=== PATIENT | female | born 1975 | race Caucasian/White ===

== ENCOUNTER → 2018-12-13 | Outpatient (CLI) | payer MEDICARE, OTHER ==
--- NOTE | 2018-12-16 11:58 | MM ---
Reason for exam: screening (asymptomatic). Last mammogram was performed 6 years and 7 months ago. History: Family history of premenopausal breast cancer in mother at age 35, breast cancer in maternal aunt, and breast cancer in maternal grandmother. Took hormonal contraceptives for 1 year beginning at age 34. Physical Findings: A clinical breast exam by your physician is recommended on an annual basis and results should be correlated with mammographic findings. MG 3D Screening Mammo W/Cad Bilateral CC and MLO view(s) were taken. Prior study comparison: May 28, 2012, bilateral digital screening mammo w/CAD. October 14, 2010, CAD bilateral diagnostic mammogram. There are scattered fibroglandular densities. There is no discrete abnormality. ASSESSMENT: Negative, BI-RAD 1 RECOMMENDATION: Routine screening mammogram of both breasts in 1 year.
== END ==
LOC: RADMAMWWP 07:33
PROVIDERS: ATTEND Internal Medicine
DX: Z12.31 Encounter for screening mammogram for malignant neoplasm of breast (principal); Z80.3 Family history of malignant neoplasm of breast
CPT/HCPCS: 77063; 77067

== ENCOUNTER 2019-12-03 07:38 | Emergency (ER) | payer MEDICARE, OTHER ==
[2019-12-03] MEDS ORDERED: ALBUTEROL INHALER 60 PUFF/8 GM INHALER (BULK) INHALATION STA (08:11)
--- NOTE | 2019-12-03 08:11 | ED ---
General Adult HPI - General Chief complaint: Shortness of Breath Stated complaint: COLD Time Seen by Provider: 12/03/19 07:40 Source: patient, RN notes reviewed, old records reviewed Mode of arrival: ambulatory Limitations: no limitations - History of Present Illness Initial comments: This is a 44-year-old female with past medical history significant for smoking and history of high blood pressure. Patient states she woke up this morning about 4:00 and was having a hard time breathing. Patient states she felt like she was wheezing but she also states the difficulty breathing is intermittent. Patient states she had 101.3 fever at home and but she took Tylenol at 6:30 this morning. Patient denies any chest pain or palpitations. Patient denies headache. Patient denies numbness weakness. Patient denies any abdominal pain patient's nausea vomiting diarrhea. Patient denies any swelling to the legs or calf tenderness. - Related Data Home Medications Medication Instructions Recorded Confirmed Ibuprofen [Motrin] 800 mg PO TID 01/03/16 01/03/16 Medroxyprogesterone Acetate 10 mg PO Q14D 01/03/16 01/03/16 [Provera] Propranolol HCl [Inderal Xl] 80 mg PO DAILY 01/03/16 01/03/16 Rivaroxaban [Xarelto] 15 mg PO DAILY 01/03/16 01/03/16 Previous Rx's Medication Instructions Recorded Albuterol Inhaler [Ventolin Hfa 1 - 2 puff INHALATION Q6HR PRN #2 12/03/19 Inhaler] puff Allergies Allergy/AdvReac Type Severity Reaction Status Date / Time cephalexin monohydrate Allergy Itching Verified 12/03/19 07:43 [From Keflex] codeine AdvReac Nausea & Verified 12/03/19 07:43 Vomiting Review of Systems ROS Statement: Those systems with pertinent positive or pertinent negative responses have been documented in the HPI. ROS Other: All systems not noted in ROS Statement are negative. Past Medical History Past Medical History: Hypertension History of Any Multi-Drug Resistant Organisms: None Reported Past Surgical History: Cholecystectomy Additional Past Surgical History / Comment(s): bladder sling Past Psychological History: No Psychological Hx Reported Smoking Status: Current every day smoker Past Alcohol Use History: None Reported Past Drug Use History: None Reported General Exam - General Exam Comments Initial Comments: GENERAL: Patient is well-developed and well-nourished. Patient is nontoxic and well- hydrated and is in mild distress. ENT: Neck is soft and supple. No significant lymphadenopathy is noted. Oropharynx is clear. Moist mucous membranes. Neck has full range of motion without eliciting any pain. EYES: The sclera were anicteric and conjunctiva were pink and moist. Extraocular movements were intact and pupils were equal round and reactive to light. Eyelids were unremarkable. PULMONARY: Unlabored respirations. Good breath sounds bilaterally. No audible rales rhonchi or wheezing was noted. CARDIOVASCULAR: There is a regular rate and rhythm without any murmurs gallops or rubs. ABDOMEN: Soft and nontender with normal bowel sounds. SKIN: Skin is clear with no lesions or rashes and otherwise unremarkable. NEUROLOGIC: Patient is alert and oriented x3. Cranial nerves II through XII are grossly intact. Motor and sensory are also intact. Normal speech, volume and content. Symmetrical smile. MUSCULOSKELETAL: Normal extremities with adequate strength and full range of motion. LYMPHATICS: No significant lymphadenopathy is noted PSYCHIATRIC: Normal psychiatric evaluation. Limitations: no limitations Course Vital Signs 12/03/19 07:41 Temperature 98 F Pulse Rate 84 Respiratory 18 Rate Blood Pressure 161/96 O2 Sat by Pulse 99 Oximetry Medical Decision Making - Medical Decision Making EKG shows normal sinus rhythm at 73 bpm NC interval is 134 tresses 94 Q-T intervals 428 QTC is 471. Patient's EKG shows no ST segment elevation or depression. Patient's chest x-ray shows no acute abnormality. Patient received Ventolin and after the Ventolin she was feeling better she still had no wheezing. Disposition Clinical Impression: Upper respiratory infection Disposition: HOME SELF-CARE Instructions (If sedation given, give patient instructions): Upper Respiratory Infection (ED) Prescriptions: Albuterol Inhaler [Ventolin Hfa Inhaler] 1 - 2 puff INHALATION Q6HR PRN #2 puff PRN Reason: Difficulty breathing Is patient prescribed a controlled substance at d/c from ED?: No Referrals: Logan Page MD [Primary Care Provider] - 1-2 days Time of Disposition: 09:34
--- NOTE | 2019-12-03 08:35 | XR ---
EXAMINATION TYPE: XR chest 1V portable DATE OF EXAM: 12/03/2019 Comparison: 07/31/2011 Clinical History: 44-year-old female Difficulty breathing Findings: Hazy densities related to overlying soft tissue and underpenetration from portable technique. Heart u pper limits of normal in size. For the hazy densities, no jaswinder consolidation or pleural effusion seen. Impression: Limitations due to patient body habitus, underpenetration, and portable technique. No definite acute cardiopulmonary process.
--- NOTE | 2019-12-03 09:22 | XR ---
EXAMINATION TYPE: XR chest 2V DATE OF EXAM: 12/03/2019 COMPARISON: 12/03/2019 HISTORY: 44 year-old female shortness of breath, difficulty breathing TECHNIQUE: PA and lateral views FINDINGS: The heart is upper limits of normal in size. Aorta and pulmonary vasculature are within normal limits . Mild interstitial prominence likely combination of chronic change and magnification from large body habitus. No consolidation or pleural effusion. IMPRESSION: Borderline heart size. Chronic appearing changes without acute cardiopulmonary process.
[2019-12-03 09:52] VITALS: BP 149/96; PULSE 72; RESP 19; TEMP 98.1
== END 2019-12-03 09:52 | disposition home or self-care (01) ==
LOC: EC 07:38
DX: J06.9 Acute upper respiratory infection, unspecified (principal); I10 Essential (primary) hypertension; F17.200 Nicotine dependence, unspecified, uncomplicated; Z88.1 Allergy status to other antibiotic agents; Z88.5 Allergy status to narcotic agent; Z79.01 Long term (current) use of anticoagulants; Z79.890 Hormone replacement therapy; Z79.899 Other long term (current) drug therapy
CPT/HCPCS: 71046; 93005; 94640; 99285

== ENCOUNTER 2020-11-09 22:38 | Emergency (ER) | payer MEDICARE, OTHER ==
[2020-11-09 22:44] VITALS: TEMP 98.5
--- NOTE | 2020-11-09 23:02 | ED ---
SOB HPI - General Chief Complaint: Shortness of Breath Stated Complaint: SOB,chest pain Time Seen by Provider: 11/09/20 23:02 Source: patient, RN notes reviewed, old records reviewed Mode of arrival: ambulatory Limitations: no limitations - History of Present Illness Initial Comments: This is a 45-year-old female with history of smoking who did cut does currently today with severe shortness of breath shortness of breath cough or congestion. Patient has no recent travel history but does state that she has chest pain pain with a deep breath back pain and lower back pain which she takes a deep breath. No triadic injury noted no fevers. Patient did breathing treatment at home which did not really seem to help her she does not have any formal diagnosis of COPD or heart disease. Patient states the chest pain cough. Persistent here in the emergency department MD Complaint: shortness of breath, cough -: days(s) Severity: moderate Severity scale (1-10): 7 Quality: aching, throbbing Consistency: constant Improves With: nothing Worsens With: exertion, movement Known History Of: COPD, asthma Context: recent URI Associated Symptoms: pain with inspiration, cough Treatments Prior to Arrival: none - Related Data Home Medications Medication Instructions Recorded Confirmed Ibuprofen [Motrin] 800 mg PO TID 01/03/16 01/03/16 Medroxyprogesterone Acetate 10 mg PO Q14D 01/03/16 01/03/16 [Provera] Propranolol HCl [Inderal Xl] 80 mg PO DAILY 01/03/16 01/03/16 Rivaroxaban [Xarelto] 15 mg PO DAILY 01/03/16 01/03/16 Previous Rx's Medication Instructions Recorded Albuterol Inhaler (Mhu) [Ventolin 1 - 2 puff INHALATION Q6HR PRN #2 12/03/19 Hfa Inhaler (Mhu)] puff Albuterol Sulfate [Proair Hfa] 1 - 2 puff INHALATION Q4H PRN #1 11/10/20 inhaler Azithromycin [Zithromax Z-pack (6 0 mg PO DIRECTED #1 pack 11/10/20 tabs)] predniSONE 50 mg PO DAILY #5 tab 11/10/20 Allergies Allergy/AdvReac Type Severity Reaction Status Date / Time cephalexin monohydrate Allergy Itching Verified 11/09/20 22:44 [From Keflex] codeine AdvReac Nausea & Verified 11/09/20 22:44 Vomiting Review of Systems ROS Statement: Those systems with pertinent positive or pertinent negative responses have been documented in the HPI. ROS Other: All systems not noted in ROS Statement are negative. Past Medical History Past Medical History: Diabetes Mellitus, Hypertension Additional Past Medical History / Comment(s): DM 2, History of Any Multi-Drug Resistant Organisms: None Reported Past Surgical History: Cholecystectomy, Tubal Ligation Additional Past Surgical History / Comment(s): bladder sling, Past Psychological History: No Psychological Hx Reported Smoking Status: Current every day smoker Past Alcohol Use History: None Reported Past Drug Use History: None Reported General Exam Limitations: no limitations General appearance: alert, in no apparent distress, anxious, obese Head exam: Present: atraumatic, normocephalic, normal inspection Eye exam: Present: normal appearance, PERRL, EOMI. Absent: scleral icterus, conjunctival injection, periorbital swelling ENT exam: Present: normal exam, mucous membranes moist Neck exam: Present: normal inspection. Absent: tenderness, meningismus, lymphadenopathy Respiratory exam: Present: wheezes. Absent: respiratory distress, rales, rhonchi, stridor Cardiovascular Exam: Present: regular rate, normal rhythm, normal heart sounds. Absent: systolic murmur, diastolic murmur, rubs, gallop, clicks GI/Abdominal exam: Present: soft, normal bowel sounds. Absent: distended, tenderness, guarding, rebound, rigid Extremities exam: Present: normal inspection, full ROM, normal capillary refill. Absent: tenderness, pedal edema, joint swelling, calf tenderness Back exam: Present: normal inspection Neurological exam: Present: alert, oriented X3, CN II-XII intact Psychiatric exam: Present: normal affect, normal mood Skin exam: Present: warm, dry, intact, normal color. Absent: rash Course Vital Signs 11/09/20 11/10/20 11/10/20 22:40 00:16 00:40 Temperature 98.5 F Pulse Rate 86 82 80 Respiratory 18 Rate Blood Pressure 159/89 O2 Sat by Pulse 98 Oximetry - Reevaluation(s) Reevaluation #1: 11/10/20 01:07 Medical records reviewed Reevaluation #2: 11/10/20 01:07 Mild improvement here in the ER with Reevaluation #3: 11/10/20 01:07 Patient does still have persistent back pain and pain with a deep breath will obtain a computed tomography scan Reevaluation #4: 11/10/20 01:30 Patient is in no distress pain is controlled prefers discharged home Medical Decision Making - Medical Decision Making 45 female with smoking history likely undiagnosed COPD now acute bronchitis. Patient will be given at home treatment and can be discharged - Lab Data Result diagrams: 11/09/20 23:14 11/09/20 23:14 Lab Results 11/09/20 11/09/20 11/09/20 Range/Units 23:14 23:14 23:14 WBC 10.4 (3.8-10.6) k/uL RBC 5.41 H (3.80-5.40) m/uL Hgb 13.9 (11.4-16.0) gm/dL Hct 42.7 (34.0-46.0) % MCV 79.0 L (80.0-100.0) fL MCH 25.6 (25.0-35.0) pg MCHC 32.5 (31.0-37.0) g/dL RDW 15.8 H (11.5-15.5) % Plt Count 421 (150-450) k/uL MPV 6.1 Neutrophils % 53 % Lymphocytes % 40 % Monocytes % 4 % Eosinophils % 1 % Basophils % 0 % Neutrophils # 5.5 (1.3-7.7) k/uL Lymphocytes # 4.1 (1.0-4.8) k/uL Monocytes # 0.5 (0-1.0) k/uL Eosinophils # 0.1 (0-0.7) k/uL Basophils # 0.1 (0-0.2) k/uL D-Dimer 0.29 (<0.60) mg/L FEU Sodium 134 L (137-145) mmol/L Potassium 3.7 (3.5-5.1) mmol/L Chloride 102 (98-107) mmol/L Carbon Dioxide 23 (22-30) mmol/L Anion Gap 9 mmol/L BUN 12 (7-17) mg/dL Creatinine 0.68 (0.52-1.04) mg/dL Est GFR (CKD-EPI)AfAm >90 (>60 ml/min/1.73 sqM) Est GFR (CKD-EPI)NonAf >90 (>60 ml/min/1.73 sqM) Glucose 265 H (74-99) mg/dL Calcium 9.6 (8.4-10.2) mg/dL Magnesium 1.7 (1.6-2.3) mg/dL Total Bilirubin 0.4 (0.2-1.3) mg/dL AST 35 (14-36) U/L ALT 34 (4-34) U/L Alkaline Phosphatase 124 (38-126) U/L Lactate Dehydrogenase 239 L (313-618) U/L Troponin I (0.000-0.034) ng/mL C-Reactive Protein 28.2 H (<10.0) mg/L Total Protein 7.1 (6.3-8.2) g/dL Albumin 4.0 (3.5-5.0) g/dL 11/09/20 Range/Units 23:24 WBC (3.8-10.6) k/uL RBC (3.80-5.40) m/uL Hgb (11.4-16.0) gm/dL Hct (34.0-46.0) % MCV (80.0-100.0) fL MCH (25.0-35.0) pg MCHC (31.0-37.0) g/dL RDW (11.5-15.5) % Plt Count (150-450) k/uL MPV Neutrophils % % Lymphocytes % % Monocytes % % Eosinophils % % Basophils % % Neutrophils # (1.3-7.7) k/uL Lymphocytes # (1.0-4.8) k/uL Monocytes # (0-1.0) k/uL Eosinophils # (0-0.7) k/uL Basophils # (0-0.2) k/uL D-Dimer (<0.60) mg/L FEU Sodium (137-145) mmol/L Potassium (3.5-5.1) mmol/L Chloride (98-107) mmol/L Carbon Dioxide (22-30) mmol/L Anion Gap mmol/L BUN (7-17) mg/dL Creatinine (0.52-1.04) mg/dL Est GFR (CKD-EPI)AfAm (>60 ml/min/1.73 sqM) Est GFR (CKD-EPI)NonAf (>60 ml/min/1.73 sqM) Glucose (74-99) mg/dL Calcium (8.4-10.2) mg/dL Magnesium (1.6-2.3) mg/dL Total Bilirubin (0.2-1.3) mg/dL AST (14-36) U/L ALT (4-34) U/L Alkaline Phosphatase (38-126) U/L Lactate Dehydrogenase (313-618) U/L Troponin I <0.012 (0.000-0.034) ng/mL C-Reactive Protein (<10.0) mg/L Total Protein (6.3-8.2) g/dL Albumin (3.5-5.0) g/dL - EKG Data -: EKG Interpreted by Me (KG sinus rhythm 83 RI 148 QRS 112 QTc 465) - Radiology Data Radiology results: report reviewed (Chest x-rays negative for acute disease CT of the chest including her abdomen pelvis is negative for acute disease), image reviewed Disposition Clinical Impression: Acute exacerbation of chronic obstructive pulmonary disease, Acute bronchitis Disposition: HOME SELF-CARE Condition: Good Instructions (If sedation given, give patient instructions): Acute Bronchitis (ED) Prescriptions: predniSONE 50 mg PO DAILY #5 tab Albuterol Sulfate [Proair Hfa] 1 - 2 puff INHALATION Q4H PRN #1 inhaler PRN Reason: Shortness Of Breath Azithromycin [Zithromax Z-pack (6 tabs)] 0 mg PO DIRECTED #1 pack Is patient prescribed a controlled substance at d/c from ED?: No Referrals: Melvin Mayes [Primary Care Provider] - 1-2 days
--- NOTE | 2020-11-09 23:34 | XR ---
EXAMINATION TYPE: XR chest 1V portable DATE OF EXAM: 11/09/2020 COMPARISON: 12/03/2019 HISTORY: Fever and cough TECHNIQUE: Single view FINDINGS: There is no heart failure nor confluent pneumonic infiltrate. Costophrenic angles are clear . There are no hilar masses. There are chest leads. IMPRESSION: No active cardiopulmonary disease. No change.
[2020-11-09 23:55] LABS: Basophils # (A) 0.1 k/uL (0-0.2); Basophils % (A) 0 %; Eosinophils # (A) 0.1 k/uL (0-0.7); Eosinophils % (A) 1 %; HCT 42.7 % (34.0-46.0); HGB 13.9 gm/dL (11.4-16.0); Lymphocytes # (A) 4.1 k/uL (1.0-4.8); Lymphocytes % (A) 40 %; MCH 25.6 pg (25.0-35.0); MCHC 32.5 g/dL (31.0-37.0); Mean Platelet Volume 6.1; Monocytes # (A) 0.5 k/uL (0-1.0); Monocytes % (A) 4 %; Neutrophils # (A) 5.5 k/uL (1.3-7.7); Neutrophils % (A) 53 %; Platelet Count 421 k/uL (150-450); RBC 5.41 m/uL (3.80-5.40); RDW 15.8 % (11.5-15.5); WBC 10.4 k/uL (3.8-10.6)
[2020-11-10] MEDS ORDERED: IPRATROPIUM-ALBUTEROL 3 ML NEB INHALATION STA
[2020-11-10] MEDS ORDERED: DEXAMETHASONE SOD PHOSPHATE 10 MG/ML 1 ML VIAL IV STA (00:01)
[2020-11-10] MEDS ORDERED: KETOROLAC 15 MG/ML 1 ML VIAL IVP STA (00:03)
[2020-11-10 00:10] LABS: ALT 34 U/L (4-34); AST 35 U/L (14-36); African American GFR (CKD) >90 (>60 ml/min/1.73 sqM); Alkaline Phosphatase 124 U/L (38-126); Anion Gap 9 mmol/L; Blood Urea Nitrogen 12 mg/dL (7-17); C Reactive Protein 28.2 mg/L (<10.0); Calcium 9.6 mg/dL (8.4-10.2); Carbon Dioxide 23 mmol/L (22-30); Chloride 102 mmol/L (98-107); Glucose 265 mg/dL (74-99); LDH 239 U/L (313-618); Magnesium 1.7 mg/dL (1.6-2.3); Non-African American GFR(CKD) >90 (>60 ml/min/1.73 sqM); Potassium 3.7 mmol/L (3.5-5.1); Sodium 134 mmol/L (137-145); Total Bilirubin 0.4 mg/dL (0.2-1.3); Total Protein 7.1 g/dL (6.3-8.2)
[2020-11-10] MEDS ORDERED: AZITHROMYCIN 500 MG in SODIUM CHLORIDE 0.9% 250 ML IVPB STA (00:45)
[2020-11-10] MEDS ORDERED: MORPHINE SULFATE 4 MG/ML SYRINGE IVP STA (00:45)
--- NOTE | 2020-11-10 01:16 | CT ---
EXAM: CT Angiography Chest With Intravenous Contrast CLINICAL HISTORY: ITS.REASON CT Reason: pe TECHNIQUE: Axial computed tomographic angiography images of the chest with intravenous contrast. CTDI is 21.97 mGy and DLP is 524.8 mGy-cm. This CT exam was performed using one or more of the following dose reduction techniques: automated exposure control, adjustment of the mA and/or kV according to patient size, and/or use of iterative reconstruction technique. MIP reconstructed images were created and reviewed. COMPARISON: No relevant prior studies available. FINDINGS: Pulmonary arteries: Unremarkable. No pulmonary embolism. Aorta: No acute findings. No thoracic aortic aneurysm. Lungs: Mild dependent atelectasis. No consolidation. Pleural space: Unremarkable. No significant effusion. No pneumothorax. Heart: Unremarkable. No cardiomegaly. No significant pericardial effusion. No evidence of RV dysfunction. Bones/joints: Thoracic degenerative disc disease. No acute fracture. No dislocation. Soft tissues: Unremarkable. Lymph nodes: Unremarkable. No enlarged lymph nodes. IMPRESSION: No pulmonary embolism. No acute disease.
--- NOTE | 2020-11-10 01:22 | CT ---
EXAM: CT Abdomen and Pelvis With Intravenous Contrast CLINICAL HISTORY: ITS.REASON CT Reason: back pain TECHNIQUE: Axial computed tomography images of the abdomen and pelvis with intravenous contrast. CTDI is 39 mGy and DLP is 1656.5 mGy-cm. This CT exam was performed using one or more of the following dose reduction techniques: automated exposure control, adjustment of the mA and/or kV according to patient size, and/or use of iterative reconstruction technique. COMPARISON: No relevant prior studies available. FINDINGS: ABDOMEN: Liver: See below. Gallbladder and bile ducts: Cholecystectomy. No ductal dilation. Pancreas: Unremarkable. No mass. No ductal dilation. Spleen: Unremarkable. No splenomegaly. Adrenals: Unremarkable. No mass. Kidneys and ureters: A couple nonobstructing stones lower pole right kidney, largest measures 3 mm. Hepatomegaly. Stomach and bowel: Duodenal diverticula. No obstruction. No mucosal thickening. PELVIS: Appendix: No findings to suggest acute appendicitis. Bladder: Unremarkable. No mass. Reproductive: 2 cm corpus luteum in the left ovary. 2.1 cm left paraovarian cyst. ABDOMEN and PELVIS: Intraperitoneal space: Unremarkable. No free air. No significant fluid collection. Bones/joints: Lumbar facet arthropathy. No acute fracture. No dislocation. Soft tissues: Unremarkable. Vasculature: Unremarkable. No abdominal aortic aneurysm. Lymph nodes: Unremarkable. No enlarged lymph nodes. IMPRESSION: 1. No acute disease. 2. Nonobstructive right nephrolithiasis. 3. Hepatomegaly.
[2020-11-10 01:33] VITALS: BP 178/96; PULSE 83; RESP 20
[2020-11-10] MEDS ORDERED: AZITHROMYCIN 500 MG TAB PO STA (01:41)
[2020-11-10 01:58] LABS: Appearance,Urine Clear (Clear); Bilirubin,Urine Negative (Negative); Blood,Urine Negative (Negative); Color,Urine Light Yellow; Glucose,Urine (UA) 3+ (Negative); Ketones,Urine Negative (Negative); Leukocyte Esterase,Urine Negative (Negative); Nitrite,Urine Negative (Negative); Protein,Urine Negative (Negative); Urobilinogen,Urine <2.0 mg/dL (<2.0)
[2020-11-10 02:03] LABS: Specific Gravity,Urine >1.050 (1.001-1.035)
== END 2020-11-10 01:56 | disposition home or self-care (01) ==
LOC: EC 22:38
DX: J44.1 Chronic obstructive pulmonary disease with (acute) exacerbation (principal); J44.0 Chronic obstructive pulmonary disease with (acute) lower respiratory infection; J20.9 Acute bronchitis, unspecified; I10 Essential (primary) hypertension; F17.200 Nicotine dependence, unspecified, uncomplicated; Z79.3 Long term (current) use of hormonal contraceptives; Z79.899 Other long term (current) drug therapy; Z79.1 Long term (current) use of non-steroidal anti-inflammatories (NSAID); Z79.01 Long term (current) use of anticoagulants; Z88.1 Allergy status to other antibiotic agents; Z88.5 Allergy status to narcotic agent
CPT/HCPCS: 36415; 94640; 93005; 85379; 80053; 83615; 83735; 84484; 85025; 86140; 81003; 87040 ×2; 71045; 71275; 74177; 99285; 96375 ×2; 96374; J1100; J0456; J1885; Q9967

== ENCOUNTER → 2020-11-11 | Outpatient (CLI) | payer MEDICARE, OTHER ==
--- NOTE | 2020-11-11 13:43 | ECHOS ---
STRESS ECHOCARDIOGRAM LUMASON: N/A VIAL: INDICATIONS: Chest pain MEDICATIONS: BASELINE HEART RATE: 58 BASELINE BLOOD PRESSURE: 107/68 MAXIMUM HEART RATE: 136 MAXIMUM BLOOD PRESSURE: 181/77 85% MPHR: 149 100% MPHR: 175 METS: 8.9 MAXIMUM STAGE REACHED: 3 TOTAL EXERCISE TIME: 7 minutes 39 seconds CLINICAL INFORMATION: Baseline rhythm is a sinus mechanism, rate of 58, normal axis and intervals, minor nonspecific ST-T wave changes. Baseline blood pressure 107/68 mmHg. Patient exercised on Roger protocol for 7 minutes 39 seconds reaching peak rate of 136 beats per minute which is equal to 78% maximum predicted heart rate. Peak blood pressure 181/77 mmHg. Test was terminated secondary to fatigue. There was no chest pain. Electrocardiograph monitoring revealed no evidence of diagnostic ischemic ST deviation. Rare PVCs were noted. Baseline echocardiogram revealed normal wall motion. At peak exercise, there was normal wall motion augmentation with no hypokinesis or dyskinesis. CONCLUSION: 1. Decreased exercise tolerance with nondiagnostic electrocardiograph stress testing secondary to the inability to achieve 85% maximum predicted heart rate. At the rate achieved, there was no evidence of stress-induced ischemia. 2. Normal echocardiographic response to exercise with no evidence of stress-induced ischemia at the rate achieved. MMODL / IJN: [id number] /
== END ==
LOC: RADNMMAIN 09:33
PROVIDERS: ATTEND Family Medicine
DX: I20.8 Other forms of angina pectoris (principal)
CPT/HCPCS: 93351

== ENCOUNTER → 2020-12-14 | Outpatient (CLI) | payer MEDICARE, OTHER | END | disposition home or self-care (01) | LOC: LABWHC1 16:32 | PROVIDERS: ATTEND Family Medicine | DX: U07.1 COVID-19 (principal) | CPT/HCPCS: U0003; C9803 ==

== ENCOUNTER 2021-05-03 03:24 | Emergency (ER) | payer MEDICARE, OTHER ==
[2021-05-03 03:30] VITALS: TEMP 98.5
[2021-05-03] MEDS ORDERED: predniSONE 20 MG TAB PO STA (03:56)
--- NOTE | 2021-05-03 04:01 | ED ---
URI HPI - General Chief Complaint: Upper Respiratory Infection Stated Complaint: VIOLA,Cough Time Seen by Provider: 05/03/21 03:38 Source: patient Mode of arrival: ambulatory Limitations: no limitations - History of Present Illness MD Complaint: cough, sore throat, nasal congestion, other -: days(s) Severity: moderate Quality: burning Consistency: constant Improves With: nothing Associated Symptoms: sore throat, cough, shortness of breath, ear pain Treatments Prior to Arrival: none - Related Data Home Medications Medication Instructions Recorded Confirmed Ibuprofen [Motrin] 800 mg PO TID 01/03/16 01/03/16 Medroxyprogesterone Acetate 10 mg PO Q14D 01/03/16 01/03/16 [Provera] Propranolol HCl [Inderal Xl] 80 mg PO DAILY 01/03/16 01/03/16 Rivaroxaban [Xarelto] 15 mg PO DAILY 01/03/16 01/03/16 Previous Rx's Medication Instructions Recorded Albuterol Inhaler (Mhu) [Ventolin 1 - 2 puff INHALATION Q6HR PRN #2 12/03/19 Hfa Inhaler (Mhu)] puff Albuterol Sulfate [Proair Hfa] 1 - 2 puff INHALATION Q4H PRN #1 11/10/20 inhaler Azithromycin [Zithromax Z-pack (6 0 mg PO DIRECTED #1 pack 11/10/20 tabs)] predniSONE 50 mg PO DAILY #5 tab 11/10/20 Azithromycin [Zithromax Z-pack (6 250 mg PO DIRECTED #6 tab 05/03/21 tabs)] predniSONE 60 mg PO DAILY #30 tab 05/03/21 Allergies Allergy/AdvReac Type Severity Reaction Status Date / Time cephalexin monohydrate Allergy Itching Verified 05/03/21 03:30 [From Keflex] codeine AdvReac Nausea & Verified 05/03/21 03:30 Vomiting Review of Systems ROS Statement: Those systems with pertinent positive or pertinent negative responses have been documented in the HPI. ROS Other: All systems not noted in ROS Statement are negative. Constitutional: Denies: fever, chills ENT: Reports: ear pain, throat pain, congestion. Denies: hearing loss Respiratory: Reports: cough Cardiovascular: Denies: chest pain, palpitations Gastrointestinal: Denies: abdominal pain, nausea, vomiting Genitourinary: Denies: dysuria, hematuria Skin: Denies: rash Neurological: Denies: headache, weakness, numbness Past Medical History Past Medical History: Diabetes Mellitus, Hypertension Additional Past Medical History / Comment(s): DM 2, History of Any Multi-Drug Resistant Organisms: None Reported Past Surgical History: Cholecystectomy, Tubal Ligation Additional Past Surgical History / Comment(s): bladder sling, Past Psychological History: No Psychological Hx Reported Smoking Status: Former smoker Past Alcohol Use History: Occasional Past Drug Use History: None Reported General Exam Limitations: no limitations General appearance: alert, in no apparent distress Head exam: Present: atraumatic, normocephalic Eye exam: Present: normal appearance ENT exam: Present: normal oropharynx, normal external ear exam. Absent: TM's normal bilaterally (Effusion right TM) Neck exam: Present: normal inspection Respiratory exam: Present: wheezes, decreased breath sounds. Absent: respiratory distress, rales, rhonchi, stridor, accessory muscle use Cardiovascular Exam: Present: regular rate, normal rhythm, normal heart sounds. Absent: systolic murmur, diastolic murmur, rubs, gallop GI/Abdominal exam: Present: soft Extremities exam: Present: normal inspection, normal capillary refill Neurological exam: Present: alert Skin exam: Present: warm, dry, intact, normal color. Absent: rash Course Vital Signs 05/03/21 05/03/21 05/03/21 03:25 04:13 04:29 Temperature 98.5 F Pulse Rate 73 76 88 Respiratory 22 16 Rate Blood Pressure 156/89 151/78 O2 Sat by Pulse 97 97 Oximetry Medical Decision Making - Lab Data Lab Results 05/03/21 05/03/21 Range/Units 03:55 04:19 Coronavirus (PCR) Not Detected (Not Detectd) Group A Strep Rapid Negative (Negative) Disposition Clinical Impression: Acute middle ear effusion, COPD exacerbation Disposition: HOME SELF-CARE Condition: Fair Instructions (If sedation given, give patient instructions): COPD (Chronic Obstructive Pulmonary Disease) (DC), Serous Otitis Media (ED) Prescriptions: predniSONE 60 mg PO DAILY #30 tab Azithromycin [Zithromax Z-pack (6 tabs)] 250 mg PO DIRECTED #6 tab Is patient prescribed a controlled substance at d/c from ED?: No Referrals: Melvin Mayes [Primary Care Provider] - 1-2 days
[2021-05-03] MEDS: ALBUTEROL NEBULIZED 2.5 MG/3 ML INHALATION STA ×2 (04:10→04:28)
--- NOTE | 2021-05-03 04:40 | XR ---
EXAMINATION TYPE: XR chest 2V DATE OF EXAM: 05/03/2021 COMPARISON: 11/09/2020 HISTORY: Cough TECHNIQUE: 2 views FINDINGS: Heart and mediastinum are normal. Lungs are clear. Diaphragm is normal. Bony thorax is inta ct. IMPRESSION: Normal chest. No change.
[2021-05-03 05:45] VITALS: BP 131/87; PULSE 78; RESP 18
== END 2021-05-03 05:45 | disposition home or self-care (01) ==
LOC: EC 03:24
DX: H74.8X1 Other specified disorders of right middle ear and mastoid (principal); J44.1 Chronic obstructive pulmonary disease with (acute) exacerbation; R09.81 Nasal congestion; E11.9 Type 2 diabetes mellitus without complications; I10 Essential (primary) hypertension; Z87.891 Personal history of nicotine dependence; Z88.1 Allergy status to other antibiotic agents; Z88.5 Allergy status to narcotic agent; Z20.822 Contact with and (suspected) exposure to COVID-19; Z79.899 Other long term (current) drug therapy
CPT/HCPCS: 99285; 94640; 87081; 87430; 87635; 71046; J7512

== ENCOUNTER → 2023-01-17 | Outpatient (CLI) | payer MEDICARE, OTHER ==
--- NOTE | 2023-01-17 09:12 | US ---
EXAMINATION TYPE: US transvaginal DATE OF EXAM: 01/17/2023 COMPARISON: CT on 11/10/2020 CLINICAL INDICATION: Female, 47 years old with history of N93.9 ABNORMAL UTERINE AND VAGINAL BLEEDING ; Heavy menstrual bleeding, low RBC count TECHNIQUE: Transvaginal (TV). Date of LMP: 12/18/2021 EXAM MEASUREMENTS: Uterus: 8.7 x 5.1 x 5.4 cm Endometrial Stripe: 0.93 cm Right Ovary: 4.3 x 3.3 x4.3 cm Left Ovary: 2.5 x 1.4 x 2.4 cm 1. Uterus: Anteverted Anechoic area in cervix region measures: 0.8 x 0.8 x 1.0 cm 2. Endometrium: wnl 3. Right Ovary: anechoic area noted measurin.6 x 1.9 x 3.4 cm with internal debris. 4. Left Ovary: anechoic area noted measurin.9 x 1.4 x 2.1 cm likely representing dominant follic le. 5. Bilateral Adnexa: Obscured by overlying bowel gas 6. Posterior cul-de-sac: wnl IMPRESSION: 1. No evidence for acute process. 2. Endometrium within normal limits for thickness for premenopausal patient.. 3. Dominant right ovarian probable hemorrhagic follicle measuring 3.6 x 1.9 x 3.4
--- NOTE | 2023-01-17 10:02 | MM ---
Reason for Exam: Screening (asymptomatic). Last mammogram was performed 4 year(s) and 1 month(s) ago. Patient History: Menarche at age 12. First Full-Term at age 14. Patient has history of breast feeding. Maternal grandmother had breast cancer. Maternal aunt had breast cancer. Mother had breast cancer, age 35. Last menstrual period: 12/22/2022 Risk Values: Natalie 5 year model risk: 1.6%. NCI Lifetime model risk: 16.7%. Prior Study Comparison: 10/14/2010 Bilateral Diagnostic Mammogram, [facility]. 05/28/2012 Bilateral Screening Mammogram, [facility]. 12/13/2018 Bilateral Screening Mammogram, [facility]. Tissue Density: There are scattered fibroglandular densities. Findings: Analyzed By CAD. There is no suspicious group of microcalcifications or new suspicious mass in either breast. Overall Assessment: Negative, BI-RAD 1 Management: Screening Mammogram of both breasts in [address] [facility] will attempt to contact patient to return for supplemental views and ultrasound if indicated. Patient should continue monthly self-breast exams. A clinical breast exam by your physician is recommended on an annual basis. This exam should not preclude additional follow-up of suspicious palpable abnormalities. Note on Natalie scores and lifetime risk: 1. A Natalie score greater than 3% is considered moderate risk. If this is the case, consider specialist referral to assess eligibility for a risk reducing agent. 2. If overall lifetime risk for the development of breast cancer is 20% or higher, the patient may qualify for future screening with alternating mammogram and breast MRI. Electronically signed and approved by: Tha Celestin DO
== END | disposition home or self-care (01) ==
LOC: RADMAMWWP 06:57
PROVIDERS: ATTEND Family Medicine
DX: Z12.31 Encounter for screening mammogram for malignant neoplasm of breast (principal); N93.9 Abnormal uterine and vaginal bleeding, unspecified; Z80.3 Family history of malignant neoplasm of breast
CPT/HCPCS: 76830; 77063; 77067